=== PATIENT | male | born 1950 | race Caucasian/White ===

== ENCOUNTER 2016-09-20 11:41 | Emergency (ER) | payer MEDICARE ==
[2016-09-20 12:00] VITALS: TEMP 98.9; BMI 31.8
[2016-09-20] MEDS ORDERED: NS 1,000 ML IV ONE (12:31)
[2016-09-20] MEDS ORDERED: SODIUM CHLORIDE 0.9% 3 ML FLUSH FLUSH PRN (12:31)
[2016-09-20 12:40] LABS: AUTOMATED BASOPHIL 1.4 % (0-2); AUTOMATED EOSINOPHIL 2.1 % (0-5); AUTOMATED MONOCYTE 5.5 % (3-10); MPV 6.5 fL (7.4-10.4)
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
[2016-09-20 12:52] LABS: BLOOD UREA NITROGEN 11 MG/DL (9-20); CALCIUM 9.2 MG/DL (8.4-10.2); CALCULATED OSMOLALITY 264 MOs/Kg (270-290); CHLORIDE 101 mEq/L (98-107); ETOH-MGDL < 10 mg/dL; GLUCOSE 74 mg/dL (70-99); SODIUM LEVEL 138 mEq/L (137-146); TOTAL PROTEIN 8.4 G/DL (6.3-8.2)
[2016-09-20 12:57] LABS: PARTIAL THROMB. TIME 25.9 SEC (22-35); PT-INR 1.1
[2016-09-20 13:24] VITALS: PULSE 72
[2016-09-20 13:39] LABS: ALL NEG? NO
--- NOTE | 2016-09-20 13:40 | DIRPT ---
CLINICAL DATA: Frequent falls and increasing confusion EXAM: CT HEAD WITHOUT CONTRAST TECHNIQUE: Contiguous axial images were obtained from the base of the skull through the vertex without intravenous contrast. COMPARISON: 05/23/2010 FINDINGS: Bony calvarium is intact. Atrophic changes are noted. No findings to suggest acute hemorrhage, acute infarction or space-occupying mass lesion are noted. IMPRESSION: Atrophy without acute abnormality. Electronically Signed By: Brent Torres M.D. On: 09/20/2016 13:37
[2016-09-20 13:49] LABS: LEUKOCYTES/URINE NEG (NEGATIVE); NITRITE/URINE NEG (NEGATIVE); RBC/URINE 0-2 (0-2); URINE OCCULT BLOOD NEG (NEG/TRACE)
[2016-09-20 13:51] LABS: MDMA* NEG (NEGATIVE); METHAMPHETAMINES NEG (NEGATIVE)
[2016-09-20 13:52] LABS: OXYCODONE NEG (NEGATIVE)
--- NOTE | 2016-09-20 14:01 | DIRPT ---
CLINICAL DATA: Weakness EXAM: PORTABLE CHEST 1 VIEW COMPARISON: 09/08/2014 and 05/25/2014 FINDINGS: Cardiomediastinal silhouette is stable. No acute infiltrate or pleural effusion. No pulmonary edema. Stable mild basilar atelectasis or scarring. Chronic mild elevation of the left hemidiaphragm. IMPRESSION: No active disease. Stable mild basilar atelectasis or scarring. Chronic mild elevation of the left hemidiaphragm. Electronically Signed By: Jack Shukla M.D. On: 09/20/2016 13:59
[2016-09-20 14:58] VITALS: BP 145/74
[2016-09-20] MEDS ORDERED: SODIUM CHLORIDE 0.9% 3 ML FLUSH FLUSH SCH (18:00)
== END 2016-09-20 15:15 | disposition home or self-care (01) ==
LOC: ED 11:41
DX: F10.10 Alcohol abuse, uncomplicated (principal); Z91.14 Patient's other noncompliance with medication regimen; R53.1 Weakness
CPT/HCPCS: 36415; 70450; 71010; 80053; 80307; 81001; 82140; 83880; 84484; 85025; 85610; 85730; 87086; 93005; 96360; 99284; G0480